=== PATIENT | male | born 1940 | race Caucasian/White ===

== ENCOUNTER 2017-09-02 00:50 | Inpatient (IN) | payer OTHER ==
[~2017-09-02] VITALS: Ht 165.1 cm; Wt 74.0 kg
[2017-09-02] VITALS (21 sets, daily range): BP systolic 93–186; BP diastolic 49–107
[2017-09-02 01:19] LABS: HEMATOCRIT 40.3 % (38.0-50.0); HEMOGLOBIN 12.5 G/DL (12.5-16.6); MCH 24.1 PG (29.0-34.0); MCV 77.6 FL (86-99); PLATELET COUNT 295 K/uL (156-360); RBC DIS.WIDTH-CV 16.2 % (11.8-14.6); RBC DIS.WIDTH-SD 45.6 % (39-53); RED BLOOD COUNT 5.19 M/uL (4.00-5.50); WHITE BLOOD COUNT 10.8 K/uL (4.1-10.2)
[2017-09-02 01:25] LABS: INTER. NORMALIZED RATIO 0.9
[2017-09-02 01:28] LABS: ALBUMIN 4.4 g/dL (3.2-4.8)
[2017-09-02 01:28] LABS: PTT 25.9 SEC (25-37)
[2017-09-02 01:29] LABS: CHLORIDE 103 mEq/L (99-109); POTASSIUM 4.1 mEq/L (3.7-5.4); SODIUM 137 mEq/L (136-147)
[2017-09-02 01:31] LABS: GLUCOSE 219 mg/dL (70-99); TOTAL PROTEIN 7.2 g/dL (6.4-8.3)
[2017-09-02 01:33] LABS: TOTAL BILIRUBIN 0.5 mg/dL (0.0-1.0)
[2017-09-02 01:34] LABS: ALKALINE PHOSPHATASE 110 IU/L (3-129)
[2017-09-02 01:35] LABS: CREATININE 1.1 mg/dL (0.6-1.3); GFR ESTIMATE (CALCULATED) > 59 mL/min/ (58.99-99999)
[2017-09-02 01:36] LABS: AST (GOT) 34 IU/L (2-34); UREA NITROGEN (BUN) 13 mg/dL (9-23)
[2017-09-02 01:37] LABS: BASE EXCESS -1.5 mEq/L (-3 to +3); BICARBONATE 29.2 mEq/L (22-26); CARBOXY HGB 1.7 % (0-5); COMMENTS - BLOOD GASES A+C+; DEVICE 840 VENT; FI02 100 %; MECHANICAL RATE 16 resp/min; METHEMOGLOBIN 0.9 % (0-1.5); MODE AC; PCO2 82 mm Hg (35-45); PO2 221 mm Hg (80-100); SITE LR; TOTAL RESP RATE 16 resp/min; pH 7.16 (7.35-7.45)
[2017-09-02 01:37] LABS: ALT (GPT) 32 IU/L (3-49)
[2017-09-02 01:38] LABS: PEEP 8 CM/H20; TIDAL VOLUME 500 ML
[2017-09-02 01:38] LABS: LIPASE 39 U/L (1.0-51.0)
[2017-09-02 02:14] LABS: TROP-I INTERPRETATION NEGATIVE; TROPONIN-I 0.03 ng/mL (0.0-0.30)
[2017-09-02 05:45] LABS: BASE EXCESS 1.8 mEq/L (-3 to +3); BICARBONATE 28.5 mEq/L (22-26); CARBOXY HGB 1.8 % (0-5); COMMENTS - BLOOD GASES C+A+; DEVICE VENT; FI02 80 %; MECHANICAL RATE 20 resp/min; METHEMOGLOBIN 1.4 % (0-1.5); MODE AC; PCO2 54 mm Hg (35-45); PO2 93 mm Hg (80-100); SITE RR; pH 7.33 (7.35-7.45)
[2017-09-02 05:46] LABS: PEEP 8 CM/H20; TIDAL VOLUME 500 ML; TOTAL RESP RATE 20 resp/min
[2017-09-02 12:03] LABS: TROP-I INTERPRETATION INDETERMINATE; TROPONIN-I 0.52 ng/mL (0.0-0.30)
[2017-09-02 18:34] LABS: BASE EXCESS 4.2 mEq/L (-3 to +3); BICARBONATE 30.6 mEq/L (22-26); CARBOXY HGB 1.6 % (0-5); COMMENTS - BLOOD GASES A+C+; CONTINUOUS POS AIRWAY PRESSURE 8 cm H2O; DEVICE VENT; FI02 60 %; METHEMOGLOBIN 1.5 % (0-1.5); MODE SPON:TC; PCO2 53 mm Hg (35-45); PO2 130 mm Hg (80-100); SITE LR; TOTAL RESP RATE 16 resp/min; pH 7.37 (7.35-7.45)
[2017-09-03] VITALS (26 sets, daily range): BP systolic 107–203; BP diastolic 51–105
[2017-09-03 12:20] LABS: TROP-I INTERPRETATION NEGATIVE; TROPONIN-I 0.26 ng/mL (0.0-0.30)
[2017-09-03 12:36] LABS: BASE EXCESS 5.7 mEq/L (-3 to +3); BICARBONATE 30.6 mEq/L (22-26); CARBOXY HGB 1.4 % (0-5); COMMENTS - BLOOD GASES A+C+; DEVICE VENT; FI02 40 %; MODE SPONT PS; PCO2 45 mm Hg (35-45); PO2 181 mm Hg (80-100); SITE RR; pH 7.44 (7.35-7.45)
[2017-09-03 12:37] LABS: PEEP 5 CM/H20; PRES. SUPPORT 10 CM/H2O; TOTAL RESP RATE 21 resp/min
[2017-09-03] MEDS ORDERED: IMDUR60 MG PO (20:12)
[2017-09-03] MEDS ORDERED: OMEPRAZOLE40 M1 PO (20:13)
[2017-09-03] MEDS ORDERED: METOPROLOL SUCC25 MG PO (20:13)
[2017-09-03] MEDS ORDERED: NITROGLYCERIN0.4 MG SL ×2 (20:13→20:14)
[2017-09-03] MEDS ORDERED: LOSARTAN POTAS100 MG PO (20:14)
[2017-09-03] MEDS ORDERED: ALPRAZOLAM0.5 MG PO (20:18)
[2017-09-04] VITALS (24 sets, daily range): BP systolic 149–175; BP diastolic 70–99
[2017-09-04 11:31] LABS: BASOPHIL (%) 0 % (0-1); EOSINOPHIL (%) 0 % (0-5); HEMATOCRIT 38.5 % (38.0-50.0); HEMOGLOBIN 11.9 G/DL (12.5-16.6); IMMATURE GRANULOCYTE (%) 0.5 % (0.0-0.7); LYMPHOCYTE (%) 2.4 % (15-42); LYMPHOCYTE COUNT 0.3 K/uL (1.0-2.8); MCH 23.9 PG (29.0-34.0); MCHC 30.9 G/DL (30.0-36.0); MCV 77.3 FL (86-99); MONOCYTE (%) 3.9 % (3-12); MONOCYTE COUNT 0.4 K/uL (0-0.8); NEUTROPHIL (%) 93.2 % (45-76); NEUTROPHIL COUNT 10.3 K/uL (1.8-6.4); PLATELET COUNT 242 K/uL (156-360); RBC DIS.WIDTH-SD 46.9 % (39-53); RED BLOOD COUNT 4.98 M/uL (4.00-5.50)
[2017-09-04 11:54] LABS: TROP-I INTERPRETATION POSITIVE; TROPONIN-I 3.86 ng/mL (0.0-0.30)
[2017-09-04 12:04] LABS: CHLORIDE 100 MEQ/L (99-109); GFR ESTIMATE (CALCULATED) > 59 mL/min/ (58.99-99999); GLUCOSE 163 mg/dL (70-99); MAGNESIUM 2.1 mg/dl (1.3-2.7); PHOSPHORUS 3.4 mg/dL (2.5-4.9); POTASSIUM 4.7 MEQ/L (3.7-5.4); SODIUM 138 MEQ/L (136-147); UREA NITROGEN (BUN) 29 mg/dL (9-23)
[2017-09-04 17:06] LABS: HEMATOCRIT 36.7 % (38.0-50.0); HEMOGLOBIN 11.4 G/DL (12.5-16.6); MCH 23.8 PG (29.0-34.0); MCHC 31.1 G/DL (30.0-36.0); MCV 76.6 FL (86-99); PLATELET COUNT 215 K/uL (156-360); RBC DIS.WIDTH-CV 16.8 % (11.8-14.6); RED BLOOD COUNT 4.79 M/uL (4.00-5.50); WHITE BLOOD COUNT 8.5 K/uL (4.1-10.2)
[2017-09-04 17:25] LABS: TROP-I INTERPRETATION POSITIVE; TROPONIN-I 2.59 ng/mL (0.0-0.30)
[2017-09-05] VITALS (24 sets, daily range): BP systolic 110–170; BP diastolic 63–110
[2017-09-05 03:23] LABS: BASOPHIL (%) 0.1 % (0-1); EOSINOPHIL (%) 0 % (0-5); HEMATOCRIT 37.1 % (38.0-50.0); HEMOGLOBIN 11.7 G/DL (12.5-16.6); IMMATURE GRANULOCYTE (%) 0.5 % (0.0-0.7); LYMPHOCYTE (%) 4.9 % (15-42); LYMPHOCYTE COUNT 0.4 K/uL (1.0-2.8); MCH 23.9 PG (29.0-34.0); MCHC 31.5 G/DL (30.0-36.0); MCV 75.9 FL (86-99); MONOCYTE (%) 3.9 % (3-12); MONOCYTE COUNT 0.3 K/uL (0-0.8); NEUTROPHIL (%) 90.6 % (45-76); NEUTROPHIL COUNT 7.2 K/uL (1.8-6.4); PLATELET COUNT 228 K/uL (156-360); RBC DIS.WIDTH-CV 16.8 % (11.8-14.6); RBC DIS.WIDTH-SD 45.4 % (39-53); RED BLOOD COUNT 4.89 M/uL (4.00-5.50); WHITE BLOOD COUNT 7.9 K/uL (4.1-10.2)
[2017-09-05 03:36] LABS: CHLORIDE 100 mEq/L (99-109); POTASSIUM 5.5 mEq/L (3.7-5.4); SODIUM 139 mEq/L (136-147)
[2017-09-05 03:46] LABS: CREATININE 1.1 mg/dL (0.6-1.3); GFR ESTIMATE (CALCULATED) > 59 mL/min/ (58.99-99999); PHOSPHORUS 3.3 mg/dL (2.5-4.9)
[2017-09-05 03:50] LABS: GLUCOSE 189 mg/dL (70-99)
[2017-09-05 03:55] LABS: UREA NITROGEN (BUN) 27 mg/dL (9-23)
[2017-09-06] VITALS (24 sets, daily range): BP systolic 123–187; BP diastolic 68–129
[2017-09-06 05:23] LABS: HEMATOCRIT 36.3 % (38.0-50.0); HEMOGLOBIN 11.4 G/DL (12.5-16.6); MCH 23.9 PG (29.0-34.0); MCHC 31.4 G/DL (30.0-36.0); MCV 76.3 FL (86-99); PLATELET COUNT 198 K/uL (156-360); RBC DIS.WIDTH-CV 16.9 % (11.8-14.6); RBC DIS.WIDTH-SD 46.2 % (39-53); RED BLOOD COUNT 4.76 M/uL (4.00-5.50); WHITE BLOOD COUNT 6.6 K/uL (4.1-10.2)
[2017-09-06 05:28] LABS: INTER. NORMALIZED RATIO 1.1
[2017-09-06 05:31] LABS: PTT 64.4 SEC (25-37)
[2017-09-06 05:45] LABS: CHLORIDE 101 MEQ/L (99-109); GFR ESTIMATE (CALCULATED) > 59 mL/min/ (58.99-99999); GLUCOSE 183 mg/dL (70-99); SODIUM 136 MEQ/L (136-147); UREA NITROGEN (BUN) 29 mg/dL (9-23)
[2017-09-06 05:46] LABS: POTASSIUM 4.1 MEQ/L (3.7-5.4)
[2017-09-07] VITALS (14 sets, daily range): BP systolic 145–193; BP diastolic 70–98
[2017-09-07 05:44] LABS: BASOPHIL (%) 0 % (0-1); EOSINOPHIL (%) 0 % (0-5); HEMATOCRIT 36.3 % (38.0-50.0); HEMOGLOBIN 11.4 G/DL (12.5-16.6); IMMATURE GRANULOCYTE (%) 0.3 % (0.0-0.7); LYMPHOCYTE (%) 6.1 % (15-42); LYMPHOCYTE COUNT 0.4 K/uL (1.0-2.8); MCH 23.7 PG (29.0-34.0); MCHC 31.4 G/DL (30.0-36.0); MCV 75.3 FL (86-99); MONOCYTE (%) 3.7 % (3-12); MONOCYTE COUNT 0.3 K/uL (0-0.8); NEUTROPHIL (%) 89.9 % (45-76); PLATELET COUNT 191 K/uL (156-360); RBC DIS.WIDTH-CV 16.5 % (11.8-14.6); RBC DIS.WIDTH-SD 44.8 % (39-53); RED BLOOD COUNT 4.82 M/uL (4.00-5.50); WHITE BLOOD COUNT 6.7 K/uL (4.1-10.2)
[2017-09-07 06:10] LABS: CHLORIDE 101 MEQ/L (99-109); CREATININE 0.8 MG/DL (0.6-1.3); GFR ESTIMATE (CALCULATED) > 59 mL/min/ (58.99-99999); GLUCOSE 153 mg/dL (70-99); MAGNESIUM 1.9 mg/dl (1.3-2.7); PHOSPHORUS 4.1 mg/dL (2.5-4.9); POTASSIUM 3.9 MEQ/L (3.7-5.4); SODIUM 140 MEQ/L (136-147); UREA NITROGEN (BUN) 21 mg/dL (9-23)
[2017-09-08] VITALS: BP 155/77
[2017-09-08 04:00] VITALS: BP 158/83
[2017-09-08 06:04] LABS: HEMATOCRIT 36.1 % (38.0-50.0); HEMOGLOBIN 11.3 G/DL (12.5-16.6); MCH 23.7 PG (29.0-34.0); MCHC 31.3 G/DL (30.0-36.0); MCV 75.7 FL (86-99); PLATELET COUNT 183 K/uL (156-360); RBC DIS.WIDTH-CV 16.4 % (11.8-14.6); RBC DIS.WIDTH-SD 44.3 % (39-53); RED BLOOD COUNT 4.77 M/uL (4.00-5.50); WHITE BLOOD COUNT 5.2 K/uL (4.1-10.2)
[2017-09-08 06:40] LABS: CHLORIDE 106 MEQ/L (99-109); CREATININE 0.9 MG/DL (0.6-1.3); GFR ESTIMATE (CALCULATED) > 59 mL/min/ (58.99-99999); POTASSIUM 3.6 MEQ/L (3.7-5.4); SODIUM 141 MEQ/L (136-147); UREA NITROGEN (BUN) 22 mg/dL (9-23)
[2017-09-08 06:52] LABS: GLUCOSE 100 mg/dL (70-99)
[2017-09-08 10:23] VITALS: BP 123/69
[2017-09-08 11:38] VITALS: BP 127/60
[2017-09-08] MEDS ORDERED: APRESOLINE25 MG PO ×2 (12:34→13:55)
[2017-09-08] MEDS ORDERED: ATORVASTATIN CA40 MG PO ×2 (12:34→13:55)
[2017-09-08] MEDS ORDERED: AMLODIPINE BESY10 MG PO ×2 (12:34→13:55)
[2017-09-08] MEDS ORDERED: PREDNISONE20 MG PO (12:34)
[2017-09-08] MEDS ORDERED: CLOPIDOGREL75 MG PO ×2 (12:34→13:55)
[2017-09-08] MEDS ORDERED: IMDUR120 MG PO ×2 (12:34→13:55)
[2017-09-08] MEDS ORDERED: METOPROLOL SUCC50 MG PO ×2 (12:34→13:55)
[2017-09-08] MEDS ORDERED: IMDUR60 MG PO (13:21)
[2017-09-08] MEDS ORDERED: TOPROL XL50 MG PO (13:21)
[2017-09-08] MEDS ORDERED: ASPIRIN81 M2 PO ×2 (13:34→13:55)
[2017-09-08] MEDS ORDERED: ALPRAZOLAM0.5 MG PO (13:55)
[2017-09-08] MEDS ORDERED: LOSARTAN POTAS100 MG PO (13:55)
[2017-09-08] MEDS ORDERED: FAMOTIDINE20 MG PO (13:56)
[2017-09-08] MEDS ORDERED: PREDNISONE10 MG PO (14:04)
== END 2017-09-08 15:15 | disposition home or self-care (01) | DRG 208 ==
LOC: EME 00:50 → 4SOUTH 02:15 → 4WEST 02:15 → EDOF 02:15 → ENRESERV 02:16 → 4WEST 03:49 → ENRESERV 09-07 12:19 → CANRESERV 09-07 12:19 → ENRESERV 09-08 09:32 → 4SOUTH 09-08 11:19
PROVIDERS: Emergency Medicine; Internal Medicine Cardiovascular Disease; Internal Medicine Critical Care Medicine; Physician Assistant Medical; Specialist; Surgery
DX: J96.01 Acute respiratory failure with hypoxia (principal); J96.02 Acute respiratory failure with hypercapnia; E87.2 Acidosis; J44.9 Chronic obstructive pulmonary disease, unspecified; I10 Essential (primary) hypertension; D50.9 Iron deficiency anemia, unspecified; Z66 Do not resuscitate; I21.4 Non-ST elevation (NSTEMI) myocardial infarction; J18.9 Pneumonia, unspecified organism; E11.9 Type 2 diabetes mellitus without complications; J44.1 Chronic obstructive pulmonary disease with (acute) exacerbation; E78.5 Hyperlipidemia, unspecified; I48.91 Unspecified atrial fibrillation; I47.1 Supraventricular tachycardia; J20.9 Acute bronchitis, unspecified; J44.0 Chronic obstructive pulmonary disease with (acute) lower respiratory infection; I35.0 Nonrheumatic aortic (valve) stenosis; I27.20 Pulmonary hypertension, unspecified; Z78.1 Physical restraint status; Z80.9 Family history of malignant neoplasm, unspecified; Z87.891 Personal history of nicotine dependence; Z83.3 Family history of diabetes mellitus; Z87.01 Personal history of pneumonia (recurrent); Z79.82 Long term (current) use of aspirin
CPT/HCPCS: 31500; 36600; 71045; 71275; 80048; 80053; 82803; 82948; 83605; 83690; 83735; 83880; 84100; 84484; 85025; 85027; 85610; 85730; 87040; 87070; 87077; 87147; 87186; 87205; 87502; 87641; 90686; 93005; 93306; 94002; 94003; 94640; 94640 76; 94760; 94799; 97530 GO; 97530 GP; 99202; 99281; 99285; C1769; C1887; J1644; J1650; J1815; J1940; J1956; J2250; J2405; J2704; J2920; J3010; J3370; J7030; J7512; J7644

== ENCOUNTER 2017-10-17 21:50 | Emergency (ER) | payer OTHER ==
[~2017-10-17] VITALS: Ht 165.1 cm; Wt 75.0 kg
[~2017-10-17 21:50] MED LIST: ALPRAZOLAM0.5 MG PO; AMLODIPINE BESY10 MG PO; APRESOLINE25 MG PO; ASPIRIN81 M2 PO; ATORVASTATIN CA40 MG PO; CLOPIDOGREL75 MG PO; FAMOTIDINE20 MG PO; IMDUR120 MG PO; IMDUR60 MG PO; LOSARTAN POTAS100 MG PO; METOPROLOL SUCC25 MG PO; METOPROLOL SUCC50 MG PO; NITROGLYCERIN0.4 MG SL; OMEPRAZOLE40 M1 PO; PREDNISONE10 MG PO; PREDNISONE20 MG PO; TOPROL XL50 MG PO
[2017-10-17 21:56] VITALS: BP 161/75
[2017-10-17 22:32] LABS: HEMATOCRIT 33.8 % (38.0-50.0); HEMOGLOBIN 11.3 G/DL (12.5-16.6); MCH 26.5 PG (29.0-34.0); MCHC 33.4 G/DL (30.0-36.0); MCV 79.2 FL (86-99); PLATELET COUNT 186 K/uL (156-360); RBC DIS.WIDTH-SD 51.3 % (39-53); RED BLOOD COUNT 4.27 M/uL (4.00-5.50); WHITE BLOOD COUNT 5.1 K/uL (4.1-10.2)
[2017-10-17 22:45] LABS: CHLORIDE 107 mEq/L (99-109); POTASSIUM 3.8 mEq/L (3.7-5.4); SODIUM 142 mEq/L (136-147)
[2017-10-17 22:47] LABS: GLUCOSE 142 mg/dL (70-99)
[2017-10-17 22:51] LABS: GFR ESTIMATE (CALCULATED) > 59 mL/min/ (58.99-99999)
[2017-10-17 22:52] LABS: UREA NITROGEN (BUN) 14 mg/dL (9-23)
[2017-10-17 22:53] LABS: TROP-I INTERPRETATION NEGATIVE; TROPONIN-I 0.03 ng/mL (0.0-0.30)
== END 2017-10-17 23:58 | disposition left against medical advice (07) ==
LOC: EME 21:50
DX: R07.9 Chest pain, unspecified (principal); Z53.21 Procedure and treatment not carried out due to patient leaving prior to being seen by health care provider
CPT/HCPCS: 71046; 80048; 84484; 85027; 93005

== ENCOUNTER 2017-11-18 22:00 | Inpatient (IN) | payer OTHER ==
[~2017-11-18] VITALS: Ht 165.1 cm; Wt 78.4 kg
[2017-11-18 22:52] LABS: CHLORIDE 104 mEq/L (99-109); POTASSIUM 3.9 mEq/L (3.7-5.4); SODIUM 141 mEq/L (136-147)
[2017-11-18 22:53] LABS: GLUCOSE 218 mg/dL (70-99)
[2017-11-18 22:57] LABS: GFR ESTIMATE (CALCULATED) > 59 mL/min/ (58.99-99999)
[2017-11-18 22:58] LABS: HEMATOCRIT 38.8 % (38.0-50.0); HEMOGLOBIN 13.5 G/DL (12.5-16.6); MCHC 34.8 G/DL (30.0-36.0); MCV 80.5 FL (86-99); PLATELET COUNT 188 K/uL (156-360); RBC DIS.WIDTH-CV 17.2 % (11.8-14.6); RBC DIS.WIDTH-SD 50.7 % (39-53); RED BLOOD COUNT 4.82 M/uL (4.00-5.50); UREA NITROGEN (BUN) 17 mg/dL (9-23); WHITE BLOOD COUNT 5.1 K/uL (4.1-10.2)
[2017-11-18 23:02] LABS: TROP-I INTERPRETATION NEGATIVE; TROPONIN-I < 0.01 ng/mL (0.0-0.30)
[2017-11-18 23:12] LABS: INTER. NORMALIZED RATIO 0.9
[2017-11-18 23:15] LABS: PTT 27.7 SEC (25-37)
[2017-11-19] VITALS (7 sets, daily range): BP systolic 128–165; BP diastolic 60–80
[2017-11-19 05:46] LABS: HEMATOCRIT 37.1 % (38.0-50.0); HEMOGLOBIN 12.2 G/DL (12.5-16.6); MCH 27.4 PG (29.0-34.0); MCHC 32.9 G/DL (30.0-36.0); MCV 83.2 FL (86-99); PLATELET COUNT 169 K/uL (156-360); RBC DIS.WIDTH-CV 17.2 % (11.8-14.6); RBC DIS.WIDTH-SD 52.8 % (39-53); RED BLOOD COUNT 4.46 M/uL (4.00-5.50)
[2017-11-19 06:05] LABS: TROP-I INTERPRETATION NEGATIVE; TROPONIN-I 0.03 ng/mL (0.0-0.30)
[2017-11-19 06:36] LABS: ALBUMIN 4.2 G/DL (3.2-4.8); ALKALINE PHOSPHATASE 88 IU/L (3-129); ALT (GPT) 15 IU/L (3-49); AST (GOT) 17 IU/L (2-34); CHLORIDE 107 MEQ/L (99-109); CREATININE 0.8 MG/DL (0.6-1.3); DIRECT BILIRUBIN 0.1 mg/dL (0.0-0.3); GFR ESTIMATE (CALCULATED) > 59 mL/min/ (58.99-99999); GLUCOSE 122 mg/dL (70-99); POTASSIUM 4.1 MEQ/L (3.7-5.4); SODIUM 138 MEQ/L (136-147); TOTAL BILIRUBIN 0.4 MG/DL (0.0-1.0); TOTAL PROTEIN 6.2 G/DL (6.4-8.3); UREA NITROGEN (BUN) 14 mg/dL (9-23)
[2017-11-19 13:15] LABS: TROP-I INTERPRETATION NEGATIVE; TROPONIN-I 0.02 ng/mL (0.0-0.30)
== END 2017-11-19 18:45 | disposition short-term general hospital (02) | DRG 303 ==
LOC: EME 22:00 → ENRESERV 11-19 00:25 → EDOF 11-19 00:25 → ENRESERV 11-19 00:45 → 4EAST 11-19 02:18
PROVIDERS: Emergency Medicine; Hospitalist
DX: I25.110 Atherosclerotic heart disease of native coronary artery with unstable angina pectoris (principal); I25.84 Coronary atherosclerosis due to calcified coronary lesion; J44.1 Chronic obstructive pulmonary disease with (acute) exacerbation; I48.0 Paroxysmal atrial fibrillation; I35.0 Nonrheumatic aortic (valve) stenosis; I10 Essential (primary) hypertension; I25.2 Old myocardial infarction; E11.9 Type 2 diabetes mellitus without complications; E78.5 Hyperlipidemia, unspecified; K21.9 Gastro-esophageal reflux disease without esophagitis; F41.9 Anxiety disorder, unspecified; F17.210 Nicotine dependence, cigarettes, uncomplicated; Z71.6 Tobacco abuse counseling; Z87.01 Personal history of pneumonia (recurrent); Z79.82 Long term (current) use of aspirin; Z79.02 Long term (current) use of antithrombotics/antiplatelets; Z88.0 Allergy status to penicillin; Z80.0 Family history of malignant neoplasm of digestive organs; Z80.8 Family history of malignant neoplasm of other organs or systems; Z83.3 Family history of diabetes mellitus
CPT/HCPCS: 71045; 80048; 80076; 82948; 84484; 85027; 85610; 85730; 93005; 94640; 94640 76; 94799; 99202; 99281; 99285; J2270; J2405; J2930